=== PATIENT | female | born 1985 | race Two or more races ===

== ENCOUNTER 2018-11-17 15:20 | Emergency (ER) | payer OTHER ==
[~2018-11-17] VITALS: Ht 152.4 cm; Wt 65.0 kg
[2018-11-17 15:45] VITALS: BP 106/65
== END 2018-11-17 16:58 | disposition home or self-care (01) ==
LOC: ER 15:20
DX: S70.361A Insect bite (nonvenomous), right thigh, initial encounter (principal); L03.115 Cellulitis of right lower limb; W57.XXXA Bitten or stung by nonvenomous insect and other nonvenomous arthropods, initial encounter; Y93.89 Activity, other specified; Y92.89 Other specified places as the place of occurrence of the external cause
CPT/HCPCS: 99283